=== PATIENT | male | born 1990 | race African-American/Black ===

== ENCOUNTER 2019-09-25 08:07 | Emergency (ER) | payer SELFPAY ==
[~2019-09-25] VITALS: Ht 193 cm; Wt 127.0 kg
[2019-09-25] MEDS ORDERED: SODIUM CHLORIDE 0.9% 1,000 ML IV ONE (09:05)
[2019-09-25] MEDS ORDERED: DEXAMETHASONE 10 MG/ML VIAL IV ONE (09:15)
[2019-09-25 09:47] LABS: BASOPHILS % 0.9 % (0.0-2.0); EOSINOPHILS % 0.5 % (0.0-5.0); HEMATOCRIT. 43.7 % (42.0-52.0); HEMOGLOBIN. 14.9 g/dL (14.0-18.0); LYMPHOCYTES % 22.4 % (20.0-50.0); MEAN CORPUSCULAR HEMOGLOBIN 28.3 pg (28.0-32.0); MEAN CORPUSCULAR VOLUME 83.1 fL (80.0-94.0); MEAN PLATELET VOLUME 7.3 fl (7.4-10.4); MONOCYTES % 9.1 % (2.0-8.0); NEUTROPHILS % 67.1 % (40.0-76.0); PLATELET 332 x1000/uL (130-400); RED BLOOD CELL COUNT 5.26 mill/uL (4.7-6.1); RED CELL DISTRIBUTION WIDTH 14.2 % (11.6-14.6)
[2019-09-25 09:49] LABS: CHLORIDE 104 mEq/L (98-107)
[2019-09-25] MEDS ORDERED: KETOROLAC 30MG/ML VIAL IV ONE (12:00)
[2019-09-25] MEDS ORDERED: IBUPROFEN 400MG TABLET PO ONE (14:30)
[2019-09-25] MEDS ORDERED: IBUPROFEN 400MG TABLET ONE (14:32)
[2019-09-25 14:37] VITALS: BP 142/84
== END 2019-09-25 14:40 | disposition home or self-care (01) ==
LOC: ER 09:05
DX: J02.8 Acute pharyngitis due to other specified organisms (principal); R50.9 Fever, unspecified; R53.1 Weakness; R59.0 Localized enlarged lymph nodes; M32.9 Systemic lupus erythematosus, unspecified; F12.10 Cannabis abuse, uncomplicated; Z91.018 Allergy to other foods
CPT/HCPCS: 36415; 71045; 80053; 85025; 87070; 87430; 93005; 96374; 96375; 99285; J1100; J1885; J7030

== ENCOUNTER 2020-04-18 07:23 | Emergency (ER) | payer MEDICAID ==
[~2020-04-18] VITALS: Ht 193 cm; Wt 148.0 kg
[2020-04-18] MEDS ORDERED: MORPHINE SULFATE 4 MG/ML CPJ (NOT FOR IM USE) IV STA (07:59)
[2020-04-18] MEDS ORDERED: ONDANSETRON HCL 4MG/2ML INJ IV STA (07:59)
[2020-04-18 08:21] LABS: CLARITY URINE CLEAR (CLEAR); COLOR URINE YELLOW (YELLOW); KETONES URINE NEGATIVE (NEGATIVE); LEUKOCYTE ESTERASE URINE NEGATIVE (NEGATIVE); NITRITE URINE NEGATIVE (NEGATIVE); OCCULT BLOOD URINE NEGATIVE (NEGATIVE); PH URINE 5.5 (4.5-8.0); PROTEIN URINE NEGATIVE (NEGATIVE); SPECIFIC GRAVITY URINE 1.017 (1.005-1.030)
[2020-04-18 08:26] LABS: BASOPHILS % 0.6 % (0.0-2.0); CHLORIDE 106 mEq/L (98-107); EOSINOPHILS % 0.8 % (0.0-5.0); HEMATOCRIT. 39.6 % (42.0-52.0); HEMOGLOBIN. 13.3 g/dL (14.0-18.0); LYMPHOCYTES % 17.2 % (20.0-50.0); MEAN CORPUSCULAR HEMOGLOBIN 28.7 pg (28.0-32.0); MEAN CORPUSCULAR VOLUME 85.4 fL (80.0-94.0); MEAN PLATELET VOLUME 7.3 fl (7.4-10.4); MONOCYTES % 5.8 % (2.0-8.0); NEUTROPHILS % 75.6 % (40.0-76.0); PLATELET 358 x1000/uL (130-400); RED BLOOD CELL COUNT 4.63 mill/uL (4.7-6.1); RED CELL DISTRIBUTION WIDTH 14.4 % (11.6-14.6)
[2020-04-18 08:35] LABS: INR 0.9; PROTHROMBIN TIME 9.8 sec (9.6-11.0)
[2020-04-18 09:30] VITALS: BP 150/96
== END 2020-04-18 09:33 | disposition home or self-care (01) ==
LOC: ER 07:45
DX: K04.7 Periapical abscess without sinus (principal); M32.9 Systemic lupus erythematosus, unspecified
CPT/HCPCS: 36415; 70486; 80053; 81003; 85025; 85610; 93005; 96374; 96375; 99285; J2270; J2405